=== PATIENT | female | born 1940 | race Caucasian/White ===

== ENCOUNTER 2020-02-04 08:18 | Day surgery (SDC) | payer MEDICARE, BC ==
[~2020-02-04] VITALS: Ht 154.9 cm; Wt 95.2 kg
[2020-02-04] VITALS (25 sets, daily range): BP systolic 101–134; BP diastolic 40–80
[2020-02-04] MEDS ORDERED: amiodarone 150mg/dext, iso-os 100 ML IV ONE (08:50)
[2020-02-04] MEDS ORDERED: MIDAZolam 1mg/ml 10ml vial IV ONE (08:50)
[2020-02-04] MEDS ORDERED: atropine 0.1mg/ml 10ml syringe IV ONE (08:50)
[2020-02-04] MEDS ORDERED: diphenhydrAMINE 25mg capsule PO ONE (08:50)
[2020-02-04] MEDS ORDERED: LORazepam 0.5 MG tablet PO ONE (08:50)
[2020-02-04] MEDS ORDERED: normal saline 1000ml 1,000 ML IV SCH (08:50)
[2020-02-04] MEDS ORDERED: fentaNYL/PF 50MCG/1 ML 2ML syringe IV ONE (08:50)
[2020-02-04] MEDS ORDERED: DILT240C90 PO (08:58)
[2020-02-04] MEDS ORDERED: DIGO250T2 PO (08:58)
[2020-02-04] MEDS ORDERED: LEVO75TA7 PO (08:58)
[2020-02-04] MEDS ORDERED: SPIR25TA5 PO (08:58)
[2020-02-04] MEDS ORDERED: PRED5TAB49 PO (08:58)
[2020-02-04] MEDS ORDERED: FURO-150 PO (08:58)
[2020-02-04] MEDS ORDERED: FLUT1DIS20 INH (08:58)
[2020-02-04] MEDS ORDERED: LOVA20TA2 PO (08:58)
[2020-02-04] MEDS ORDERED: DILT30TA5 (08:58)
[2020-02-04] MEDS ORDERED: ALBU18HF2 INH (08:58)
[2020-02-04] MEDS ORDERED: OMEP-50 PO (08:58)
[2020-02-04] MEDS ORDERED: UMEC62.5 (08:58)
[2020-02-04] MEDS ORDERED: MONT10TA21 PO (08:58)
[2020-02-04] MEDS ORDERED: APIX2.5T PO (08:58)
[2020-02-04] MEDS ORDERED: DEXT1TAB13 PO (08:58)
[2020-02-04 09:33] LABS: BASOPHILS # (AUTO) 0.1 X10'3 (0-0.2); BASOPHILS % (AUTO) 0.5 % (0-1); EOSINOPHILS # (AUTO) 0.2 X10'3 (0-0.9); EOSINOPHILS % (AUTO) 1.6 % (0-6); HEMATOCRIT 36.4 % (35.0-45.0); HEMOGLOBIN 11.8 g/dl (12.0-16.0); LYMPHOCYTES % (AUTO) 17.9 % (21-51); MEAN CORPUSCULAR HEMOGLOBIN 34.8 PG (27.0-31.0); MEAN CORPUSCULAR HGB CONC 32.4 g/dL (33.0-36.5); MEAN CORPUSCULAR VOLUME 107.2 FL (78-98); MEAN PLATELET VOLUME 6.9 FL (7.4-10.4); MONOCYTES # (AUTO) 1.3 X10'3 (0-0.9); MONOCYTES % (AUTO) 11.8 % (2-12); NEUTROPHILS # (AUTO) 7.7 X10'3 (1.8-7.7); NEUTROPHILS % (AUTO) 68.2 % (42-75); PLATELET COUNT 288 X10'3 (140-440); RED CELL DISTRIBUTION WIDTH 14.8 % (11.5-14.5); WHITE BLOOD COUNT 11.3 X10'3 (4.5-11.0)
[2020-02-04] MEDS ORDERED: morphine 10mg/ml inj. IV ONE (09:40)
== END 2020-02-04 13:40 | disposition home or self-care (01) ==
LOC: SSTAY O 08:18 → EDSTATUS 10:00 → SSTAY O 13:40
PROVIDERS: ATTEND Internal Medicine Cardiovascular Disease
DX: I48.19 Other persistent atrial fibrillation (principal); E03.9 Hypothyroidism, unspecified; I08.3 Combined rheumatic disorders of mitral, aortic and tricuspid valves; I37.1 Nonrheumatic pulmonary valve insufficiency; Z79.899 Other long term (current) drug therapy
CPT/HCPCS: 36415; 85025; 85610; 92960; 93005; 93312; 93325; J2250; J2270; J7030